=== PATIENT | female | born 2000 | race Caucasian/White ===

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

== ENCOUNTER 2021-11-13 03:36 | Emergency (ER) | payer SELFPAY ==
[2021-11-13] MEDS ORDERED: ACETAMINOPHEN 325 MG TABLET (FP) PO ONE (04:17)
[2021-11-13 04:34] VITALS: BP 113/81; PULSE 80; RESP 18; TEMP 98.2; BMI 26.4
[2021-11-13] MEDS ORDERED: ACETAMINOPHEN 325 MG TABLET (FP) ONE (04:41)
[2021-11-13 05:15] LABS: EPI CELLS 7 /uL (0-25.1); HYALINE CASTS 0 /uL (0-3.1); PH,URINE 5.5 (5.0-8.0); URINE APPEARANCE CLOUDY; URINE BACTERIA 922 /uL (0-1359); URINE BILIRUBIN NEGATIVE (NEGATIVE); URINE COLOR YELLOW; URINE GLUCOSE (UA) NEGATIVE (NEGATIVE); URINE KETONE NEGATIVE (NEGATIVE); URINE LEUK ESTERASE 3+ (NEGATIVE); URINE NITRITE NEGATIVE (NEGATIVE); URINE PROTEIN 2+ (NEGATIVE); URINE RBC 376 /uL (0-23.9); URINE UROBILINOGEN 0.2 mg/dL (0.2-1.0); URINE WBC 2964 /uL (0-25.8)
[2021-11-13 05:20] LABS: ALBUMIN 3.8 g/dl (3.4-5.0); BLOOD UREA NITROGEN 9.8 mg/dL (7-18)
[2021-11-13] MEDS ORDERED: CEFTRIAXONE 1 GM in DEXTROSE 5%-WATER - 100 ML IVPB ONE (05:22)
[2021-11-13 05:23] LABS: CREATININE 0.8 mg/dL (0.55-1.3)
[2021-11-13 05:25] LABS: BILIRUBIN,TOTAL 0.6 mg/dL (0.2-1); TOT PROT 7.3 g/dl (6.4-8.2)
[2021-11-13] MEDS ORDERED: CEFTRIAXONE 1 GM/50 ML BAG ONE (05:26)
[2021-11-13 05:39] LABS: BASO % 0.2 % (0-2.0); EOS % 1.3 % (0-4.5); HEMATOCRIT 41.3 % (32.4-45.2); HEMOGLOBIN 14.1 GM/dL (10.7-15.3); LYMPH % 24.8 % (8-40); MCH 28.6 pg (25.7-33.7); MEAN CELL VOLUME 83.9 fl (80-96); MEAN PLT VOLUME 9.1 fl (7.5-11.1); MONO % 7.4 % (3.8-10.2); NEUT % 66.3 % (42.8-82.8); PLATELET COUNT 253 10^3/uL (134-434); RBC 4.93 M/mm3 (3.60-5.2); RDW 12.6 % (11.6-15.6); WHITE BLOOD COUNT 11.4 K/mm3 (4.0-10.0)
[2021-11-13] MEDS ORDERED: SODIUM CHLORIDE 0.9% 500 ML INFUS.BAG IV ONE (06:11)
== END 2021-11-13 06:13 | disposition home or self-care (01) ==
LOC: JER 03:36
DX: N10 Acute pyelonephritis (principal)
CPT/HCPCS: 36415; 74176-TC; 80053; 81003; 84703; 85025; 87086; 87186; 99284-25

== ENCOUNTER 2023-06-02 10:53 | Emergency (ER) | payer SELFPAY ==
[2023-06-02 11:00] VITALS: BP 130/68; PULSE 66; RESP 18; TEMP 98.2; BMI 25.9
[2023-06-02] MEDS ORDERED: ACETAMINOPHEN 500 MG TABLET (FP) ONE (11:30)
[2023-06-02] MEDS ORDERED: KETOROLAC TROMETHAMINE 30 MG/1 ML VIAL ONE (11:30)
[2023-06-02] MEDS: KETOROLAC TROMETHAMINE 30 MG/1 ML VIAL IM ONE (11:34)
[2023-06-02] MEDS: ACETAMINOPHEN 500 MG TABLET (FP) PO ONE (11:34)
== END 2023-06-02 12:14 | disposition home or self-care (01) ==
LOC: JERFT 10:53
PROC: 3E0233Z Introduction of Anti-inflammatory into Muscle, Percutaneous Approach (ICD-10-PCS; principal; 2023-06-02)
DX: M54.2 Cervicalgia (principal); M25.511 Pain in right shoulder; M62.830 Muscle spasm of back; X50.1XXA Overexertion from prolonged static or awkward postures, initial encounter
CPT/HCPCS: 99284-25